=== PATIENT | male | born 1945 | race Caucasian/White ===

== ENCOUNTER 2016-11-11 11:44 | Day surgery (SDC) | payer MEDICARE, OTHER ==
[2016-11-05 17:14] VITALS: BMI 34.4
[~2016-11-11 11:44] MED LIST: SODIUM CHLORIDE 0.9% 1,000 ML IV SCH
[2016-11-11] MEDS ORDERED: SODIUM CHLORIDE 0.9% 500 ML IV ONE (12:04)
[2016-11-11 12:09] VITALS: BP 156/80; PULSE 68; RESP 12
[2016-11-11 12:16] LABS: INR 2.7 (<1.2); Prothrombin Time 26.2 sec (9.0-12.0)
[2016-11-11] MEDS ORDERED: IODIXANOL 320 MG/ML 100 ML IV ONE (12:54)
--- NOTE | 2016-11-11 13:38 | P.PCN ---
Preoperative Diagnosis: Cinefluoroscopy of the RV ICD lead No fractures or breaks noted. Patient has elevated RV thresholds and reduced impedances Left upper extremity venogram 50 mL of IV dye was introduced/injected in the left upper extremity. Patent left axillary, subclavian and innominate veins and a patent SVC Postoperative Diagnosis: Procedure(s) Performed: Implants: Indications for Procedure: Operative Findings: Description of Procedure:
--- NOTE | 2016-11-11 18:54 | P.PCN ---
Preoperative Diagnosis: ICD interrogation and reprogramming Patient has a dual-chamber ICD 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, severe Left bundle branch block with QRS width of 152 ms, prolonged LA interval of 226 ms Congestive heart failure class II, chronic systolic dysfunction, on appropriate medical treatment ICD generator on advisory Plan Add a detailed discussion with the patient Options include laser lead extraction followed by implantation of a new ICD lead , new LV lead and a biventricular ICD generator for PCU RN/ICD given his severity of LV dysfunction, congestive heart failure underlying left bundle branch block Versus Implantation of a new ICD lead, abandoning the old ICD lead, new LV lead for upgrade to a PCU RN/ICD Pros and cons of each approach risks and benefits of each approach were discussed in detail This device is about 6 years old and is a dual coil leads. Patient understands that with dual coil leads him a risk of SVC/innominate perforation is slightly higher than single coil leads I would recommend implantation of a new ICD lead as well as upgrade to a PCU RN/ ICD and he understands the risk of inappropriate ICD shocks secondary to lead noise/ lead interaction The new RV lead will be implanted in the RV apex away from the chronic ICD lead with a rising impedances Twelve-lead ECG report Sinus mechanism heart rate 71 beats a minute prolonged LA interval wide QRS 152 ms left bundle branch block morphology left axis deviation Postoperative Diagnosis: Procedure(s) Performed: Implants: Disposition: same day Indications for Procedure: Operative Findings: Description of Procedure:
== END 2016-11-11 14:45 | disposition home or self-care (01) ==
LOC: CATHEP 11:44
PROVIDERS: ATTEND Internal Medicine Clinical Cardiac Electrophysiology
DX: I42.8 Other cardiomyopathies (principal); Z45.02 Encounter for adjustment and management of automatic implantable cardiac defibrillator; I44.7 Left bundle-branch block, unspecified; I11.0 Hypertensive heart disease with heart failure; I50.22 Chronic systolic (congestive) heart failure; I73.9 Peripheral vascular disease, unspecified; Z86.718 Personal history of other venous thrombosis and embolism; Z79.01 Long term (current) use of anticoagulants; Z82.49 Family history of ischemic heart disease and other diseases of the circulatory system; Z90.5 Acquired absence of kidney; Z85.528 Personal history of other malignant neoplasm of kidney; E11.9 Type 2 diabetes mellitus without complications; Z79.4 Long term (current) use of insulin; Z79.82 Long term (current) use of aspirin; Z79.899 Other long term (current) drug therapy
CPT/HCPCS: 93005; 75820; 76000; 93283; 85610; Q9967

== ENCOUNTER 2016-12-23 06:34 | Day surgery (SDC) | payer MEDICARE, OTHER ==
[2016-12-16 15:58] VITALS: BMI 34.4
[~2016-12-23 06:34] MED LIST changes: -SODIUM CHLORIDE 0.9% 1,000 ML IV SCH; +ceFAZolin 1,000 MG in SODIUM CHLORIDE 0.9% IRRIGATIO 250 ML IRRIGATION ONE; +ceFAZolin 2 GM in SODIUM CHLORIDE 0.9% 100 ML IVPB ONE
[2016-12-23 07:29] LABS: Glucose,Whole Blood 182 mg/dL (75-99)
[2016-12-23] MEDS ORDERED: SODIUM CHLORIDE 0.9% 500 ML IV ONE (07:33)
[2016-12-23 07:49] LABS: INR 1.7 (<1.2)
[2016-12-23 07:50] LABS: Prothrombin Time 16.8 sec (9.0-12.0)
[2016-12-23] MEDS ORDERED: MIDAZOLAM 2 MG/2 ML VIAL ONE (08:21)
[2016-12-23] MEDS ORDERED: PROPOFOL 10 MG/ML 20 ML VIAL IV ONE (08:21)
[2016-12-23] MEDS ORDERED: fentaNYL (PF) 50 MCG/ML 2 ML AMP ONE (08:21)
[2016-12-23] MEDS ORDERED: LIDOCAINE 1% INJ 10MG/ML (20 ML MDV) SQ ONE ×4 (08:28→11:33)
[2016-12-23] MEDS ORDERED: ceFAZolin 1,000 MG in SODIUM CHLORIDE 0.9% IRRIGATIO 250 ML IRRIGATION ONE (08:53)
--- NOTE | 2016-12-23 08:58 | P.HPCAR ---
History of Present Illness Patient has a history of chronic systolic cardiomyopathy with congestive heart failure class 2-3 with a fractured ICD lead. Currently has a dual-chamber ICD. He also has a left bundle branch block pattern QRS width of 151 ms. A 2-D echo Doppler study was performed prior to proceeding with generator change and lead placement. 2-D echo shows severe LV dysfunction ejection fraction 25-30% by 2-D echo Plan new RV lead in the RV septum since chronic RV lead is fractured, new LV lead patient has heart failure with underlying severe chronic systolic dysfunction ejection fraction 25-30% with a left bundle branch block with a QRS width of 151 ms Physical Exam Vitals: Vital Signs Temp Pulse Resp BP 12/23/16 07:27 98.2 F 78 16 145/73 Intake and Output 12/22/16 12/23/16 12/23/16 22:59 06:59 14:59 Intake Total 50 Balance 50 Intake: IV 50 Past Medical History Past Medical History: Blood Disorder, Cancer, Diabetes Mellitus, Deep Vein Thrombosis (DVT), Hearing Disorder / Deafness, Liver Disease, Osteoarthritis (OA ), Prostate Disorder, Sleep Apnea/CPAP/BIPAP Additional Past Medical History / Comment(s): FACTOR 5 BLOOD DISORDER. LT KIDNEY CA, REMOVED 10%. HX VIRUS IN 2011 WHICH DAMAGED HEART. LT CALF DVT 2011. FATTY LIVER. NO TX USED FOR SLEEP APNEA. VARICOSE VEINS. SEE DR Jara H&Randa. History of Any Multi-Drug Resistant Organisms: None Reported Past Surgical History: AICD, Appendectomy, Tonsillectomy Additional Past Surgical History / Comment(s): [facility] AICD/PACEMAKER. 10% LT KIDNEY CA REMOVED. VASECTOMY. RT GREAT TOE REPAIR. COLONOSCOPY Past Anesthesia/Blood Transfusion Reactions: No Reported Reaction Type of Cardiac Device: Biventricular Pacemaker, AICD Device Placement Date:: Smoking Status: Never smoker - Past Family History Mother Family Medical History: Unable to Obtain Physical Examination Vital Signs Temp Pulse Resp BP 12/23/16 07:27 98.2 F 78 16 145/73 Intake and Output 12/22/16 12/23/16 12/23/16 22:59 06:59 14:59 Intake Total 50 Balance 50 Intake: IV 50 Results Coagulation 12/23/16 Range/Units 07:25 PT 16.8 H (9.0-12.0) sec Current Medications Generic Name Dose Route Start Last Admin Trade Name Freq PRN Reason Stop Dose Admin Sodium Chloride 1,000 mls @ 20 mls/hr 12/23/16 06:18 Saline 0.9% IV .Q24H YASIR Cefazolin Sodium 1,000 mg/ 250 mls @ 500 mls/hr 12/23/16 08:53 Sodium Chloride IRRIGATION 12/23/16 09:22 ONCE ONE Intake and Output 12/22/16 12/23/16 12/23/16 22:59 06:59 14:59 Intake Total 50 Balance 50 Intake: IV 50
[2016-12-23] MEDS: LIDOCAINE 1% INJ 10MG/ML (20 ML MDV) SQ ONE ×2 (10:26→11:26)
[2016-12-23] MEDS ORDERED: IOHEXOL 350 MG/ML 50ML BOTTLE INJ ONE (10:31)
[2016-12-23] MEDS ORDERED: ACETAMINOPHEN IV (For NPO) 1,000 MG in EMPTY BAG 1 BAG IVPB ONE (11:42)
[2016-12-23] MEDS ORDERED: ACETAMINOPHEN TAB 325 MG TAB PO PRN (11:42)
[2016-12-23] MEDS ORDERED: HYDROcodone/APAP 5-325MG 1 EACH TAB PO PRN (11:42)
--- NOTE | 2016-12-23 11:54 | P.HPCAR ---
History of Present Illness 71-year-old male patient with nonischemic cardio myopathy and a dual-chamber ICD implanted in 2010 at [facility] Patient of Dr. Zena Navarro and FAITH Delong Presented to the office for a defibrillator check and the ICD lead impedance was greater than 2000 and pacing thresholds were high consistent with impending lead fracture. No noise noted no inappropriate shocks Venogram revealed patent subclavian/axillary vein but the subclavian access at the original implant. In addition the ICD was superficial quite prominent and there was a of the skin at the lower border of the ICD but without any breakdown of the skin did Class II CHF No syncope no tachyarrhythmias 2-D echo showed dilated left ventricle with reduced LV systolic function severely, 25-30% Past history of diabetes hypertension peripheral vascular disease Underlying rhythm shows sinus mechanism first degree AV block and left anterior fascicular block Home medications include carvedilol Coumadin since patient has a history of DVT , insulin, losartan Intolerance to metoprolol and Rivaroxaban He is a never smoker On examination his blood pressure is 145/73 mmHg respirations are normal pulse rate is in the 70s afebrile 98.2F Heart sounds S1 and S2 are soft normal no murmurs or gallops Breath sounds are normal no rhonchi no crackles Abdomen soft nontender Extremities are warm no edema Today INR is 1.7. Coumadin was held for one day only Impression Severe nonischemic cardio myopathy ejection fraction 25-30% Chronic heart failure class 2-3 On appropriate medical treatment including beta blockers and angiotensin receptor blockers Adult-onset diabetes type 2 on insulin Hypertension Plan Upgrade to a biventricular ICD and implantation of a new RV lead I had had a detailed discussion with the family regarding the options of lead extraction, laser lead extraction this and benefits of that versus simply implanting a new lead This lead has been in place for about 6 years. It is a dual coil lead. I recommended implantation of a new ICD lead instead of proceeding with a laser lead extraction although I did give them put the options and discuss the pros and cons of both approaches Aldactone 25 g by mouth daily Pravachol 20 mg by mouth daily Physical Exam Vitals: Vital Signs Temp Pulse Resp BP 12/23/16 07:27 98.2 F 78 16 145/73 Intake and Output 12/22/16 12/23/16 12/23/16 22:59 06:59 14:59 Intake Total 150 Balance 150 Intake: IV 150 Past Medical History Past Medical History: Blood Disorder, Cancer, Diabetes Mellitus, Deep Vein Thrombosis (DVT), Hearing Disorder / Deafness, Liver Disease, Osteoarthritis (OA ), Prostate Disorder, Sleep Apnea/CPAP/BIPAP Additional Past Medical History / Comment(s): FACTOR 5 BLOOD DISORDER. LT KIDNEY CA, REMOVED 10%. HX VIRUS IN 2011 WHICH DAMAGED HEART. LT CALF DVT 2011. FATTY LIVER. NO TX USED FOR SLEEP APNEA. VARICOSE VEINS. SEE DR Jara H&P. History of Any Multi-Drug Resistant Organisms: None Reported Past Surgical History: AICD, Appendectomy, Tonsillectomy Additional Past Surgical History / Comment(s): [facility] AICD/PACEMAKER. 10% LT KIDNEY CA REMOVED. VASECTOMY. RT GREAT TOE REPAIR. COLONOSCOPY Past Anesthesia/Blood Transfusion Reactions: No Reported Reaction Type of Cardiac Device: Biventricular Pacemaker, AICD Device Placement Date:: Smoking Status: Never smoker - Past Family History Mother Family Medical History: Unable to Obtain Physical Examination Vital Signs Temp Pulse Resp BP 12/23/16 07:27 98.2 F 78 16 145/73 Intake and Output 12/22/16 12/23/16 12/23/16 22:59 06:59 14:59 Intake Total 150 Balance 150 Intake: IV 150 Results Coagulation 12/23/16 Range/Units 07:25 PT 16.8 H (9.0-12.0) sec Current Medications Generic Name Dose Route Start Last Admin Trade Name Freq PRN Reason Stop Dose Admin Acetaminophen 650 mg 12/23/16 11:42 Tylenol Tab PO Q6HR PRN Mild Pain Hydrocodone Bitart/Acetaminophen 1 each 12/23/16 11:42 [place] 5-325 PO Q4HR PRN Moderate Pain Sodium Chloride 1,000 mls @ 20 mls/hr 12/23/16 06:18 Saline 0.9% IV .Q24H YASIR Acetaminophen 1,000 mg/ IV 100 mls @ 400 mls/hr 12/23/16 11:42 Solution IVPB 12/23/16 11:56 ONCE ONE Cefazolin Sodium 2 gm/ Sodium 100 mls @ 100 mls/hr 12/23/16 15:00 Chloride IVPB 12/24/16 09:59 Q6H YASIR Losartan Potassium 50 mg 12/24/16 09:00 Cozaar PO DAILY [facility] Non-Formulary Medication 25 mg 12/23/16 21:00 Carvedilol [Carvedilol] PO BID [facility] Non-Formulary Medication 40 mg 12/24/16 09:00 Simvastatin [Simvastatin] PO DAILY [facility] Sodium Chloride 10 ml 12/23/16 21:00 Saline Flush IV Q12HR [facility] Warfarin Sodium 7.5 mg 12/23/16 11:45 Coumadin PO SUMOTUWEFRSA [facility] Warfarin Sodium 10 mg 12/26/16 11:43 Coumadin PO TH [facility] Intake and Output 12/22/16 12/23/16 12/23/16 22:59 06:59 14:59 Intake Total 150 Balance 150 Intake: IV 150
--- NOTE | 2016-12-23 12:11 | ECHOF ---
Referral Reason:chf, lv assessment, lbbb MEASUREMENTS -------- HEIGHT: 177.8 cm WEIGHT: 110.7 kg BP: 145/73 IVSd: 1.4 cm (0.6 - 1.1) LVIDd: 4.6 cm (3.9 - 5.3) LVPWd: 1.5 cm (0.6 - 1.1) LVIDs: 4.2 cm LA Diam: 3.5 cm (2.7 - 3.8) RVIDd: 3.5 cm (< 3.3) FINDINGS -------- Limited Study The left ventricular size is normal. There is moderate concentric left ventricular hypertrophy. Overall left ventricular systolic function is severely impaired with, an EF between 25 - 30 %. There is no pericardial effusion. CONCLUSIONS -------- 1. Limited Study 2. The left ventricular size is normal. 3. There is moderate concentric left ventricular hypertrophy. 4. Overall left ventricular systolic function is severely impaired with, an EF between 25 - 30 %. 5. There is no pericardial effusion. ROVING CAN TENDER: Char Perea RD
[2016-12-23] MEDS: SODIUM CHLORIDE 0.9% 1,000 ML IV SCH (12:41)
--- NOTE | 2016-12-23 14:01 | P.PCN ---
Preoperative Diagnosis: Procedure Pocket revision and relocation Dual-chamber ICD generator explant New LV lead implant New RV lead implant Chronic RV ICD lead, fractured, interrogated, elevated impedances and thresholds confirmed, then cut and And secured to the pectoralis muscle New biventricular ICD generator implant DFT testing deferred until 3 months Procedure 1 The left pectoral area was prepped and draped as a protocol 1% lidocaine was used for local anesthesia and incision was made directly over the generator palpable to the deltopectoral groove the incision was carried on telemetry the generator the generator was explanted. An extensive amount of scarring was noted in the pocket. The pocket was subcutaneous. This was also evident prior to the incision since the head was prominently visible under the collar bone and the inferior pole of the device was somewhat adherent to the skin although there was no skin breakdown. The leads were entangled in this scar tissue and the atrial lead coil seemed bent at one location but there was no break in the insulation. Later this atrial lead was interrogated and the pacing and sensing and impedance parameters were within normal limits. Very carefully partial capsulectomy was performed and the leads were freed both ICD and atrial lead and then later interrogated Impedance of about 3000 ohms on the ICD lead, high pacing threshold. Atrial lead parameters were within normal limits P waves 2.7 mV pacing impedance 371 ohms pacing threshold 0.5 V at 0.5 ms The original pocket was subcutaneous quite close the skin. A new subfascial pocket was made, the subcutaneous fat was removed the pocket was enlarged to accommodate the new device medially and more cephalad. Procedure #2 LV lead placement. The Collin sinus was accessed. Venography revealed a large middle cardiac vein connected to a large lateral vein. The LV lead is placed in the lateral vein and a very secure position. This was a [employer] service engineer model #1458 every, 86 cm in length and serial number [id number]. R waves 13 mV, pacing impedance 530 ohms, threshold 1.1 V at 0.5 ms 10 V test negative Procedure #3 New RV lead implant single coil, DF [address] [facility] [facility] medical ICD lead was placed in the mid RV septum and care was taken to make sure that the RV defibrillation coil was away from the defibrillation coil of the chronic indwelling ICD lead. [employer] medical model number LDA 210 Q, serial number [id number]. R waves 14.5 mV pacing impedance 553 ohms pacing threshold 0.7 V at 0.5 ms Procedure #4 New biventricular ICD generator implant, [employer] medical model number CD 3369 -40 Q and serial number [id number] Lead and the generator were placed in the subfascial pocket and the wound was closed in 3 layers and dressed per protocol Postoperative Diagnosis: Procedure(s) Performed: Implants: Indications for Procedure: Operative Findings: Description of Procedure:
[2016-12-23] MEDS: ceFAZolin 2 GM in SODIUM CHLORIDE 0.9% 100 ML IVPB SCH ×2 (15:16→21:44)
[2016-12-23 17:02] LABS: Glucose,Whole Blood 132 mg/dL (75-99)
[2016-12-23] MEDS ORDERED: WARFARIN 7.5 MG TAB PO SCH (18:00)
[2016-12-23 20:44] LABS: Glucose,Whole Blood 173 mg/dL (75-99)
[2016-12-23] MEDS: CARVEDILOL 12.5 MG TAB PO SCH (21:44)
[2016-12-23 22:09] LABS: Glucose,Whole Blood 154 mg/dL (75-99)
[2016-12-24] MEDS: ceFAZolin 2 GM in SODIUM CHLORIDE 0.9% 100 ML IVPB SCH ×2 (03:56→08:16)
--- NOTE | 2016-12-24 06:49 | XR ---
EXAMINATION TYPE: XR chest 2V DATE OF EXAM: 12/24/2016 HISTORY: Lead placement check. REFERENCE: NONE. FINDINGS: There is a multilead pacing device in place via a left subclavian approach. Approximately o verlies the right atrium and the distal 3 leads overlie the right ventricle. The heart is mildly enlarged. There is minimal atelectasis at the left lung base. Lungs otherwise cami ar. Pleural spaces are clear. IMPRESSION: 1. SATISFACTORY PACEMAKER LEAD PLACEMENT. 2. MILD CARDIOMEGALY. 3. SCARRING VERSUS ATELECTASIS, LEFT LUNG BASE.
[2016-12-24 07:15] VITALS: BP 161/78; PULSE 80; RESP 18; TEMP 98.4
[2016-12-24] MEDS: CARVEDILOL 12.5 MG TAB PO SCH (08:16)
[2016-12-24] MEDS: SODIUM CHLORIDE 0.9% 1,000 ML IV SCH (08:18)
[2016-12-24] MEDS ORDERED: SPIRONOLACTONE 25 MG TAB PO SCH (09:00)
[2016-12-24] MEDS ORDERED: ATORVASTATIN 20 MG TAB PO SCH (09:00)
[2016-12-24] MEDS ORDERED: LOSARTAN 50 MG TAB PO SCH (09:00)
[2016-12-24] MEDS ORDERED: PRAVASTATIN SODIUM 20 MG TAB PO SCH (09:00)
--- NOTE | 2016-12-24 10:47 | P.DS ---
Providers Attending physician: Gurwinder Jara Primary care physician: [facility] Course: Vision is doing well. No chest discomfort no dizziness lightheadedness or palpitations the ICD site is mildly sore. He is doing well he has not had any arrhythmias On examination blood pressure is 139/74 mmHg respirations are normal heart rate is in the 80s temperature 98.4F Heart sounds S1 and S2 are normal no murmurs or gallops no hematoma over the Bi V ICD site it is mildly tender Breath sounds are normal no rhonchi no crackles Abdomen is soft nontender Extremities are warm no edema Impression Cardio myopathy with systolic dysfunction chronic in nature with heart failure and underlying left bundle branch block with a wide QRS status post upgrade to a Bi V ICD and implantation of a new ICD lead 4 chronic ICD lead fracture Plan Add Aldactone 25 mg daily, maximize beta blockers as an outpatient, Continue Coumadin Follow-up in the device clinic in 5 days INRs checked at that time Patient Condition at Discharge: Stable Plan - Discharge Summary New Discharge Prescriptions: New Spironolactone [Aldactone] 25 mg PO DAILY #1 tablet No Action Cholecalciferol (Vitamin D3) [Vitamin D3] 2,000 unit PO DAILY B Complex-Vit C-Vit E-Zinc [Z-Bec] 1,000 mg PO DAILY Glucosam/Lion-Msm1/C/Kiko/Bosw [Glucosamine-Chondroitin Tablet] 1 each PO DAILY Insulin Aspart [NovoLOG] 15 - 60 units SQ AC-TID PRN PRN Reason: Blood Sugar - High Insulin Glargine [Lantus] 50 - 60 unit SQ HS Warfarin [Coumadin] 7.5 mg PO SUMOTUWEFRSA Warfarin [Coumadin] 10 mg PO TH Losartan [Cozaar] 50 mg PO DAILY Simvastatin 40 mg PO DAILY Carvedilol 25 mg PO BID Cyanocobalamin (Vitamin B-12) [Vitamin B-12] 1,000 mcg PO DAILY Discharge Medication List B Complex-Vit C-Vit E-Zinc [Z-Bec] 1,000 mg PO DAILY 11/05/16 [History] Carvedilol 25 mg PO BID 11/05/16 [History] Cholecalciferol (Vitamin D3) [Vitamin D3] 2,000 unit PO DAILY 11/05/16 [History] Cyanocobalamin (Vitamin B-12) [Vitamin B-12] 1,000 mcg PO DAILY 11/05/16 [ History] Glucosam/Lion-Msm1/C/Kiko/Bosw [Glucosamine-Chondroitin Tablet] 1 each PO DAILY 11/05/16 [History] Insulin Aspart [NovoLOG] 15 - 60 units SQ AC-TID PRN 11/05/16 [History] Insulin Glargine [Lantus] 50 - 60 unit SQ HS 11/05/16 [History] Losartan [Cozaar] 50 mg PO DAILY 11/05/16 [History] Simvastatin 40 mg PO DAILY 11/05/16 [History] Warfarin [Coumadin] 7.5 mg PO SUMOTUWEFRSA 11/05/16 [History] Warfarin [Coumadin] 10 mg PO TH 11/05/16 [History] Spironolactone [Aldactone] 25 mg PO DAILY #1 tablet 12/23/16 [Rx]
[2016-12-26] MEDS ORDERED: WARFARIN 10 MG TAB PO SCH (18:00)
== END 2016-12-24 12:02 | disposition home or self-care (01) ==
LOC: CATHEP 06:34 → 3OBS 11:45 → CATHEP 12-24 12:02
PROVIDERS: ATTEND Internal Medicine Clinical Cardiac Electrophysiology
DX: Z45.02 Encounter for adjustment and management of automatic implantable cardiac defibrillator (principal); Z00.6 Encounter for examination for normal comparison and control in clinical research program; I11.0 Hypertensive heart disease with heart failure; I50.22 Chronic systolic (congestive) heart failure; I44.7 Left bundle-branch block, unspecified; E11.9 Type 2 diabetes mellitus without complications; I73.9 Peripheral vascular disease, unspecified; I44.0 Atrioventricular block, first degree; K76.0 Fatty (change of) liver, not elsewhere classified; H91.90 Unspecified hearing loss, unspecified ear; M19.90 Unspecified osteoarthritis, unspecified site; D68.51 Activated protein C resistance; G47.33 Obstructive sleep apnea (adult) (pediatric); N40.0 Benign prostatic hyperplasia without lower urinary tract symptoms; Z86.718 Personal history of other venous thrombosis and embolism; Z85.528 Personal history of other malignant neoplasm of kidney; Z79.01 Long term (current) use of anticoagulants; Z79.4 Long term (current) use of insulin; Z79.899 Other long term (current) drug therapy; Z88.8 Allergy status to other drugs, medicaments and biological substances
CPT/HCPCS: 93308; 33225; 33249; 85610; 71020; C1769 ×4; C1892; C1730; C1900; C1777; C1882; J2250; J0690 ×3; J2001; J3010; J0131; J2704; Q9967

== ENCOUNTER 2017-03-17 06:17 | Day surgery (SDC) | payer MEDICARE, OTHER ==
[2017-03-14 08:59] VITALS: BMI 34.9
[~2017-03-17 06:17] MED LIST changes: +SODIUM CHLORIDE 0.9% 1,000 ML IV SCH; -ceFAZolin 1,000 MG in SODIUM CHLORIDE 0.9% IRRIGATIO 250 ML IRRIGATION ONE; -ceFAZolin 2 GM in SODIUM CHLORIDE 0.9% 100 ML IVPB ONE
[2017-03-17 07:00] VITALS: TEMP 97.9
[2017-03-17 07:17] LABS: Glucose,Whole Blood 164 mg/dL (75-99)
[2017-03-17 07:21] LABS: INR 2.5 (<1.2); Prothrombin Time 24.5 sec (9.0-12.0)
[2017-03-17] MEDS ORDERED: PROPOFOL 10 MG/ML 20 ML VIAL IV ONE (07:30)
[2017-03-17 07:33] LABS: Anion Gap 8 mmol/L; Blood Urea Nitrogen 19 mg/dL (9-20); Calcium 9.7 mg/dL (8.4-10.2); Carbon Dioxide 27 mmol/L (22-30); Chloride 105 mmol/L (98-107); Glucose 164 mg/dL (74-99); Non-African American GFR(MDRD) >60 (>60 ml/min/1.73 sqM); Potassium 4.7 mmol/L (3.5-5.1); Sodium 140 mmol/L (137-145)
[2017-03-17 08:43] VITALS: RESP 18
[2017-03-17 09:01] VITALS: BP 175/87; PULSE 78
--- NOTE | 2017-03-17 14:00 | CE ---
CARDIAC ELECTROPHYSIOLOGY REPORT Mr. Renato Ngo has a Bi-V ICD with congestive heart failure. He was brought in about 3 months after his upgrade for ICD testing under anesthesia. The atrial pacing threshold was 0.9 V at 0.5 milliseconds. P waves greater than 5 mV, pacing impedance 330 ohms. RV pacing threshold 0.8 V at 0.5 milliseconds. Sensing 11.5 mV and pacing impedance 410 ohms. The LV pacing threshold was 1.25 V at 0.5 milliseconds. Pacing impedance of 580 ohms. High-voltage impedance 70 ohms. A DC fib shock was used to induce ventricular fibrillation. This was adequately and appropriately detected at least sensitivity and successfully internally defibrillated with a 10 joule shock. Charge time was 1.5 seconds, shock impedance 70 ohms, no post shock noise. The charge time was 1.5 seconds and shock impedance 70 ohms to and no drop outs. The device was then reprogrammed. Sensitivity was reprogrammed to a normal sensitivity, MADIT-RIT programming was performed. Three zones of therapy with reasonable therapy with appropriate antitachycardia pacing cardioversion defibrillation. RESULT: DFT at or below 10 joules. Normal ICD function. ICD programmed to MADIT-RIT programming. PLAN: Continue current medications without any changes or follow up with Dr. Annelise Watters as before and follow up in ICD clinic in 4 months. MMODL / IJN: [id number] /
== END 2017-03-17 09:07 | disposition home or self-care (01) ==
LOC: CATHEP 06:17
PROVIDERS: ATTEND Internal Medicine Clinical Cardiac Electrophysiology
DX: Z45.02 Encounter for adjustment and management of automatic implantable cardiac defibrillator (principal); I11.9 Hypertensive heart disease without heart failure; I73.9 Peripheral vascular disease, unspecified; D49.512 Neoplasm of unspecified behavior of left kidney; D68.59 Other primary thrombophilia; E11.21 Type 2 diabetes mellitus with diabetic nephropathy; E78.5 Hyperlipidemia, unspecified; K21.9 Gastro-esophageal reflux disease without esophagitis; Z86.718 Personal history of other venous thrombosis and embolism; Z82.49 Family history of ischemic heart disease and other diseases of the circulatory system; Z79.899 Other long term (current) drug therapy; Z79.4 Long term (current) use of insulin; Z79.82 Long term (current) use of aspirin; Z79.01 Long term (current) use of anticoagulants; Z88.8 Allergy status to other drugs, medicaments and biological substances
CPT/HCPCS: 93642; 80048; 85610; J2704

== ENCOUNTER → 2017-06-24 | Outpatient (CLI) | payer MEDICARE, OTHER ==
[2017-06-24 08:06] LABS: HCT 40.7 % (39.0-53.0); MCH 27.9 pg (25.0-35.0); MCV 87.2 fL (80.0-100.0); Mean Platelet Volume 8.3; Platelet Count 141 k/uL (150-450); RBC 4.67 m/uL (4.30-5.90); RDW 14.2 % (11.5-15.5); WBC 6.8 k/uL (3.8-10.6)
[2017-06-24 11:20] LABS: Lymphocytes # (M) 1.22 k/uL (1.0-4.8); Monocytes # (M) 0.34 k/uL (0-1.0); Neutrophils # (M) 5.24 k/uL (1.3-7.7); Neutrophils % (M) 77 %; Nucleated Red Blood Cells 0 /100 WBC (0-0); Total Cells Counted 100
[2017-06-24 11:21] LABS: Anisocytosis (M) Present; Poikilocytosis (M) Present
== END | disposition home or self-care (01) ==
LOC: LABWHC1 07:44
PROVIDERS: ATTEND Family Medicine
DX: D69.6 Thrombocytopenia, unspecified (principal)
CPT/HCPCS: 36415; 85027

== ENCOUNTER → 2017-08-21 | Outpatient (CLI) | payer MEDICARE, OTHER ==
--- NOTE | 2017-08-22 07:08 | CT ---
EXAMINATION TYPE: CT abdomen pelvis w con DATE OF EXAM: 08/21/2017 COMPARISON: NONE HISTORY: Right upper quadrant pain and fatty liver per order. History of mass removed from kidney als o with symptoms of bloody stool per patient. CT DLP: 1763 mGycm, Automated Exposure Control for Dose Reduction was Utilized. CONTRAST: CT scan of the abdomen and pelvis is performed with oral and with IV Contrast, patient injected with 100 mL of Isovue 300. FINDINGS: LUNG BASES: There is partial visualization of multi lead pacemaker/defibrillator. Heart size is mildl y enlarged. LIVER/GB: Liver is diffusely low dense relative to spleen suggesting fatty infiltration but this shou ld be confirmed with ultrasound or noncontrast CT/MRI if desired. PANCREAS: Pancreas is mildly diffusely prominent. SPLEEN: There is 1.0 cm splenule in the inferior splenic hilum axial image 34. ADRENALS: No significant abnormality is seen. KIDNEYS: There is subcentimeter hypodense lesion in the posterior upper to mid pole left kidney serie s 7 image 42 that is too small to further characterize. There is symmetric cortical medullary uptake and excretion from both kidneys without evidence of concerning renal mass or hydronephrosis bilateral ly. BOWEL: The oral contrast reaches level splenic flexure. There is no suspicious small or large bowel d ilatation. Appendix is not visualized and presumed surgically absent. No suspicious wall thickening i s seen. PROSTATE/SEMINAL VESICLES: Prostate gland is enlarged in size bulging on bladder base consistent with BPH. Some posterior central zone calcifications are noted. LYMPH NODES: No greater than 1cm abdominal or pelvic lymph nodes are appreciated. OSSEOUS STRUCTURES: There is moderate multilevel spurring in the thoracic spine. Posterior disc herni ation L5-S1 level is seen. There is facet arthropathy lower lumbar levels. There is moderate joint sp maria de jesus loss in both hips with some subchondral cystic change noted. OTHER: No significant additional abnormality is seen. IMPRESSION: No significant acute finding is seen to account for patient's clinical symptoms.
== END | disposition home or self-care (01) ==
LOC: RADCTMAIN 16:56
PROVIDERS: ATTEND Family Medicine
DX: R10.11 Right upper quadrant pain (principal)
CPT/HCPCS: 74177; Q9967

== ENCOUNTER → 2017-08-27 | Outpatient (CLI) | payer MEDICARE, OTHER ==
[2017-08-27 08:11] LABS: INR 2.7 (<1.2)
[2017-08-27 08:21] LABS: Albumin 4.6 g/dL (3.5-5.0); Bilirubin, Delta 0.3 mg/dL (0.0-0.2); Bilirubin,Unconjugated 0.3 mg/dL (0.0-1.1); Total Bilirubin 0.6 mg/dL (0.2-1.3); Total Protein 7.3 g/dL (6.3-8.2)
[2017-08-27 10:39] LABS: Iron Saturation 22.67 (15.00-50.00); Protein, Total 7.1 g/dL (6.2-8.2)
[2017-08-27 10:47] LABS: Alpha Fetoprotein, Tumor Mkr 5.6 ng/mL (0.0-7.9)
[2017-08-27 11:07] LABS: Hepatitis A Antibody IgM Non-Reactive (Non-Reactive); Hepatitis B Core IgM Non-Reactive (Non-Reactive)
[2017-08-28 09:18] LABS: ANA Pattern Speckled
[2017-08-28 12:27] LABS: Albumin 4.45 g/dL (3.20-5.60); Gamma Globulin 0.97 g/dL (0.50-1.60)
== END ==
LOC: LAB 07:39
PROVIDERS: ATTEND Physician Assistant
DX: R79.9 Abnormal finding of blood chemistry, unspecified (principal)
CPT/HCPCS: 36415; 80074; 80076; 82105; 82390; 82728; 83516; 83540; 83550; 84165; 85610; 86038; 86039

== ENCOUNTER 2017-09-16 08:36 | Day surgery (SDC) | payer MEDICARE, OTHER ==
[2017-09-12 09:20] VITALS: BMI 35.2
[~2017-09-16 08:36] MED LIST changes: +LACTATED RINGERS 1,000 ML IV SCH; -SODIUM CHLORIDE 0.9% 1,000 ML IV SCH
[2017-09-16 08:55] VITALS: RESP 16; TEMP 97.1
[2017-09-16 09:01] LABS: Glucose,Whole Blood 125 mg/dL (75-99)
[2017-09-16] MEDS ORDERED: LIDOCAINE 1% INJ 10MG/ML (20 ML MDV) ONE (10:05)
[2017-09-16] MEDS ORDERED: PROPOFOL 10 MG/ML 20 ML VIAL IV ONE (10:05)
--- NOTE | 2017-09-16 10:52 | P.PCN ---
Date of Procedure: 09/16/17 Procedure(s) Performed: Procedures: 1. Esophagogastroduodenoscopy and biopsy. 2. Total colonoscopy. Preoperative diagnosis: Rectal bleeding. Postoperative diagnosis: 1. Small sliding hiatal hernia with no obvious esophagitis or complicated reflux disease. 2. Mild antral gastritis and minimal duodenitis. 3. Multiple biopsies obtained from the duodenum, antrum and esophagus. 4. Colon exam to the cecum showed no obvious diverticular disease, significant polyps or tumors. 5. Low-grade internal hemorrhoids not bleeding at this exam. Preparation: HalfLytely prep. Sedation: Was provided by anesthesia. Brief clinical history: The patient is a 71-year-old male who was evaluated in the office earlier this month because of rectal bleeding. The patient has history of polyps and had reflux issues in the past that responded to elevating the head of his bed. He had both an upper endoscopy and colonoscopy around 4 or 5 years ago. He does complain of acid regurgitation and sour taste in his mouth. His last colonoscopy was 2-3 years ago in [place], [place]. Procedure: With the patient on his left lateral decubitus position and after informed consent and adequate sedation, I passed the Olympus-GIF 160 video upper endoscope through the cricopharyngeus down the esophagus. GE junction was around 42-43 cm from the incisors and there was a small sliding hiatal hernia but no obvious esophagitis or complicated reflux disease. The endoscope was then passed into the stomach which was insufflated with air and inspected in detail including the retroflex view in the cardia. There was some mottling and erythema in the antrum but no ulcers or erosions. Pyloric channel did not show any ulcers. Duodenal bulb showed minimal erythema but no ulcers or erosions post bulbar area and descending duodenum appeared within normal limits. There was no evidence of bleeding. Multiple biopsies obtained from the duodenum, antrum and esophagus then the endoscope was withdrawn and I proceeded with the colonoscopy. Perianal area did not show any fissures or fistulas. There were no masses felt on digital rectal examination. The Olympus CFQ 160L video colonoscope was then inserted in the rectum and the usual fashion and advanced to the cecum. The mucosa appeared healthy. No obvious polyps or tumors were seen or any obvious diverticular disease or bleeding. I retroflexed the endoscope in the rectum before the endoscope was withdrawn. Low-grade internal hemorrhoids were noted with no evidence of bleeding. The patient tolerated the procedure well. Plan: The patient was reassured. Will await biopsy results. Discussed dietary measures and local care for hemorrhoids. He will follow up with you as planned and he will follow up in our office early next month and we would keep you updated on his progress.
[2017-09-16 10:56] VITALS: BP 102/64; PULSE 66
--- NOTE | 2017-09-25 17:26 | CDI ---
Outpatient Documentation Clarification Form Date: 09/25/17 CDS/Children'S Service Worker Name: Cari Bates Phone: If any questions, call Janeen Harrell Ele[facility]ated Guard at [phone] Patient Name: Renato Ngo Admit Date: 09/16/17 Discharge Date: 09/16/17 ATTENTION: [facility] Coding Staff appreciate your assistance in clarifying documentation. Please respond to the clarification below the line at the bottom and electronically sign. The [facility] Coding staff will review the response and follow-up if needed. Please note: Queries are made part of the Legal Health Record. If you have any questions, please contact the Elevated Guard. Dear Dr. Funes, What is the cause of the rectal bleeding? Our coding resources state that when rectal bleeding is documented along with conditions such as hemorrhoids or gastritis, the physician must be queried to determine whether the rectal bleeding is secondary to one of those things (if so , which?), or incidental. Thank you for your kind consideration. unable to determine MTDD
== END 2017-09-16 11:47 | disposition home or self-care (01) ==
LOC: ORWHC2ENDO 08:36
DX: K62.5 Hemorrhage of anus and rectum (principal); K29.50 Unspecified chronic gastritis without bleeding; K44.9 Diaphragmatic hernia without obstruction or gangrene; K29.80 Duodenitis without bleeding; K64.8 Other hemorrhoids; E11.9 Type 2 diabetes mellitus without complications; G47.33 Obstructive sleep apnea (adult) (pediatric); D68.51 Activated protein C resistance; I10 Essential (primary) hypertension; E78.5 Hyperlipidemia, unspecified; M19.90 Unspecified osteoarthritis, unspecified site; N40.0 Benign prostatic hyperplasia without lower urinary tract symptoms; K76.0 Fatty (change of) liver, not elsewhere classified; H91.90 Unspecified hearing loss, unspecified ear; Z95.810 Presence of automatic (implantable) cardiac defibrillator; Z90.5 Acquired absence of kidney; Z85.528 Personal history of other malignant neoplasm of kidney; Z86.718 Personal history of other venous thrombosis and embolism; Z79.01 Long term (current) use of anticoagulants; Z79.4 Long term (current) use of insulin; Z88.8 Allergy status to other drugs, medicaments and biological substances
CPT/HCPCS: 88305; 45378; 43239; J2001; J2704